=== PATIENT | female | born 1995 | race American Indian/Alaskan Native ===

== ENCOUNTER 2017-12-20 20:56 | Emergency (ER) | payer MEDICAID | END 2017-12-20 22:09 | disposition left against medical advice (07) | LOC: DL.ED 20:56 | DX: Z53.21 Procedure and treatment not carried out due to patient leaving prior to being seen by health care provider (principal) ==

== ENCOUNTER 2018-03-27 06:03 | Inpatient (IN) | payer MEDICAID ==
[~2018-03-27 06:03] MED LIST: Acetaminophen 325 MG Tab PO PRN; Carboprost Tromethamine 250 MCG/1 ML Amp IM ONE; Citric Acid/Sodium Citrate Solution 30 ML Cup PO ONE; Methylergonovine 0.2 MG/1 ML Amp IM PRN; Misoprostol 400 MCG (4 X 100 MCG TAB) RECTAL PRN; Naloxone 2 MG/2 ML Syringe IVPUSH PRN; Ondansetron 4 MG/2 ML SDV IV PRN; Oxytocin/Normal Saline 30 UNIT/500 ML BAG IV SCH; Tranexamic Acid 1,000 MG in Sodium Chloride 0.9% 100 ML IV PRN; ceFAZolin 2 GM in Premix Bag 1 BAG IV ONE; diphenhydrAMINE 50 MG/ML SDV IVPUSH PRN; ePHEDrine 50 MG/ML SDV IVPUSH PRN
[2018-03-27] MEDS: Lactated Ringers 1,000 ML IV SCH ×5 (06:25→17:43)
[2018-03-27] MEDS: Prenatal Multivitamin with Calcium/Folic Acid/Iron Tab PO SCH ×2 (07:06→08:21)
[2018-03-27] MEDS: Simethicone 80 MG Tab.Chew PO SCH ×5 (07:06→21:00)
[2018-03-27] MEDS: Ferrous Sulfate 325 MG Tab PO SCH ×2 (07:07→08:20)
--- NOTE | 2018-03-27 11:01 | OBOUT ---
DATE: 03/27/2018 DATE AND TIME OF NST: Date: 03/27/2018 Time: 6:30 to 6:50. REASON FOR NST: 1. Intrauterine at 39 weeks, confirmed with 22-1/7-week ultrasound. 2. Previous x1, request for repeat low transverse . 3. Contraction upon admission. 4. GBS negative. 5. History of suspected anti-E in , none detected, no titers in 03/2018 followed [facility] with no concerns with titers. Okay to deliver in [place]. 6. Trichomoniasis in , treated and negative on 03/01/2018. 7. Positive Chlamydia in , treated on 03/08/2018, too early to retest. 8. History of preeclampsia with previous , on aspirin prophylaxis until last week. 9. Positive UDS for THC on 09/14/2017 at [facility]. 10.History of macrosomia. 11.G2, P1-0-0-1. 12.Gestational hypertension versus preeclampsia. NST INTERPRETATION: During this time period, heart tone baseline is approximately 115 to 120, and there are at least two 15 x 15 beats per minute accelerations, making this strip reactive. It is also noted to be reassuring. Tocometer reveals potential 6 contractions, which the patient feels, described as back pain. ASSESSMENT: 1. Nonstress test, reactive and reassuring. 2. Tocometer with contractions. PLAN: Please see H and P for further details, which was done through [facility]. Records were called for, reviewed, and supplemented by the patient's history for this as well as review of systems was fully reviewed and felt to be noncontributory otherwise, other than for her contractions. Her blood pressures were 142/88, recheck 155/81; heart rate between 75 and 78; temperature 97.4. PIH panel is pending currently, and we will proceed to the OR as soon as crew is ready and available. [facility] /[id number]
[2018-03-27] MEDS ORDERED: Famotidine 20 MG/2 ML SDV IVPUSH PRN (11:45)
--- NOTE | 2018-03-27 12:22 | PN ---
DATE: 03/27/2018 SUBJECTIVE: Patient feeling her contractions in the lower abdomen, radiating to the back, coming every 2-4 minutes. LABORATORY DATA: Reveal a white cell count 12.7, hemoglobin 8.6, and platelets 304. PIH panel done essentially within normal limits except for urine protein being 30, small bilirubin, trace leukocyte esterase with a protein creatinine ratio of 0.19 in the urine with UDS negative. Blood bank did reveal O positive blood type with a positive antibody with our lab unable to determine the antibody. ASSESSMENT/PLAN: Anemia of with a 23-year-old, 2, para 1-0-0- 1, previous section, requests repeat low-transverse section with contractions in laboring type pattern with gestational hypertension and history of anti E antibody per chart review with this being negative within the last month but positive antibody on the screen today. I did discuss this with labs sales and service technician who has also consulted in blood services in regard to potential needing blood for this patient. At current time of dictation, blood bank has called us with the blood that would match her in terms of being O positive with suspected negative E antigen and at current time of dictation, we are cross matching those 4 units to see if there is any cross reactivity to make sure blood is available for this patient. I did discuss this with the patient in detail. I did also discuss with her that our lab is unable to do a specific antibody screen and her antibody test is positive here and if she does require blood, she may be at risk of a blood transfusion reaction. However, we will cross match these 4 units, hold off on the surgery as long as we can and most likely proceed if they cross match without reactivity. The patient understands and agrees with above treatment plan. Mi has been started, abdominal scrub has been done, and we will await labs confirmation of results in regard to blood that is available for the patient. Current time of dictation will be approximately 20 minutes from now prior to knowing this. We will continue to follow clinically and closely at this point in time. [facility] /[id number]
[2018-03-27] MEDS ORDERED: Oxytocin/Normal Saline 30 UNIT/500 ML BAG IV ONE (13:51)
--- NOTE | 2018-03-27 13:53 | OR ---
DATE: 03/27/2018 PREOPERATIVE DIAGNOSES: 1. Intrauterine at 39 weeks, confirmed with 22 and 1/7-week ultrasound. 2. Contractions upon admission. 3. Gestational hypertension. 4. Previous section x1, request repeat low transverse section. 5. Group B Streptococcus negative. 6. Suspected anti-E antibody earlier in . Negative earlier this month with a positive antibody test today with 4 units of cross-matched blood ready and available without cross reactivity prior to surgery. 7. Anemia of with a hemoglobin of 8.6. 8. Trichomoniasis in , treated and negative on 03/01/2018. 9. Positive chlamydia, treated on 03/08/2018, too early to retest. 10.History of preeclampsia with previous , on aspirin prophylaxis until last week. 11.Positive UDS for THC on 09/14/2017 at [facility]. Negative upon admission. 12.History of macrosomia. 13.G2, P1-0-0-1. POSTOPERATIVE DIAGNOSES: 1. Intrauterine at 39 weeks, confirmed with 22 and 1/7-week ultrasound-delivered 2. Contractions upon admission. 3. Gestational hypertension. 4. Previous section x1, requests repeat low transverse section. 5. Group B Streptococcus negative. 6. Suspected anti-E antibody earlier in . Negative earlier this month with a positive antibody test today with 4 units of cross-matched blood ready and available without cross reactivity prior to surgery. 7. Anemia of with a hemoglobin of 8.6. 8. Trichomoniasis in , treated and negative on 03/01/2018. 9. Positive chlamydia, treated on 03/08/2018 too early to retest. 10.History of preeclampsia with previous , on aspirin prophylaxis until last week. 11.Positive UDS for THC on 09/14/2017 at [facility]. Negative upon admission. 12.History of macrosomia. 13.G2, P1-0-0-1. 14.Nuchal cord x1, reduced bluntly with delivery. PROCEDURE PERFORMED: Nonstress test followed by repeat low transverse section. ASSISTANTS: 1. True Nichols MD. 2. Shubham Cohn MS-III. ANESTHESIA: Spinal. ESTIMATED BLOOD LOSS: 500 mL. INTRAVENOUS FLUIDS: 400 mL lactated Ringer's and 250 mL of Pitocin. URINE OUTPUT: 175 mL and clear yellow. START: 0915 hours. UTERINE INCISION: 0920 hours. DELIVERY: 0921 hours. STOP: 0945 hours. FINDINGS: Male, scores of 9 and 9, weight pending. DESCRIPTION OF PROCEDURE IN DETAIL: After proper consent was obtained, the patient was brought to the operating room where spinal anesthetic was administered. A Mi was placed in preop under sterile conditions. The abdomen was prepped and draped in normal sterile fashion with patient placed in supine position with left lateral tilt. A skin incision was then made in the lower abdomen in transverse Pfannenstiel- type fashion over a previous scar, and this was carried down the fascia and scored in the midline. The subcutaneous tissue was raked laterally with Chen retractors. The fascial incision was extended in transverse fashion using curved Hoffman's. Phillip clamps x2 were used to grasp the superior aspect of the rectus fascia, and the rectus muscles were dissected from the fascia using sharp and blunt technique. In a similar fashion, Phillip clamps x2 were used to grasp the inferior portion of the incision, and rectus and pyramidalis muscles were dissected from the fascia using sharp and blunt technique. The rectus muscles were in the midline with blunt technique. The abdominal cavity was entered in blunt technique. The incision was extended superiorly and inferiorly with blunt technique. River O large retractor was then introduced and used. The vesicouterine peritoneum was identified and incised in transverse fashion with Metzenbaum scissors, and bladder flap was made digitally. A curvilinear incision was made on the lower uterine segment at 0920 hours. The uterus was entered sharply. The uterine incision was then extended in transverse fashion using blunt technique. Artificial rupture of membranes was then performed. vertex was then delivered through the incision followed by rest of the with minimal difficulty with nuchal cord x1 reduced bluntly with delivery. Mouth and nares were suctioned on the patient's lap. Cord was doubly clamped and cut, and the infant was brought over to team. Then, approximately 10 mL of cord blood was obtained for labs. The placenta was then delivered with gentle cord traction and fundal massage. Uterine cavity was cleared of all blood clots with a lap sponge. Montiel clamps were used to grasp the uterine incision. This was closed in a running locked fashion and tied at the lateral margin with 1-0 Vicryl. Second imbricating layer was then applied with 1-0 Vicryl and tied at lateral margins. Right at midline, there was some bleeding. A ayvnex-ge-nnwci stitch was applied and hemostasis was reassured. First inspection of the uterine incision revealed hemostasis. The Rvier O retractor was then removed; and paracolic gutters were then cleared of all blood clots and debris with lap sponge. Anterior cul-de-sac was then irrigated copiously, and all blood clots and debris were removed. Second and final inspection of the uterine incision and anterior cul-de-sac revealed hemostasis. The rectus muscles were then reapproximated in midline with fywrtk-mk-nsene stitch using 1-0 Vicryl. Subfascial tissue was found to be hemostatic. Fascia was closed in a running fashion and tied at lateral margins with 0 looped PDS. Subcutaneous tissue was irrigated copiously and hemostasis reassured. Skin was reapproximated with medium danica. Sterile Aquacel dressing was applied. Uterine fundus was firm and massaged at the conclusion of the case -2 below umbilicus. No immediate complications were noted. Sponge, lap, and needle counts were correct. The patient received 2 g of Ancef preoperatively, Pitocin per protocol, and will receive Toradol at the conclusion of the case for pain control. Mother and infant are currently stable at the time of dictation. [facility] /[id number] JOEY
--- NOTE | 2018-03-27 13:55 | PN ---
DATE: 03/27/2018 Lab called us, did notify us that they do have 4 units of packed red blood cells that have been cross-matched without reactivity. These are the same blood units that [facility] called and checked and evaluated and suspected no E antigen involved. Therefore, we will proceed to the operating room as previously discussed. This has been discussed with the patient as well. At current time of dictation, the patient is being wheeled to the operating room. [facility] /[id number]
[2018-03-27] MEDS: Ketorolac 30 MG/ML SDV IVPUSH SCH ×2 (15:28→21:00)
[2018-03-27] MEDS: Docusate Sodium 100 MG Cap PO PRN (21:00)
[2018-03-28] MEDS: Ketorolac 30 MG/ML SDV IVPUSH SCH (03:06)
[2018-03-28] MEDS: Prenatal Multivitamin with Calcium/Folic Acid/Iron Tab PO SCH (09:11)
[2018-03-28] MEDS: Simethicone 80 MG Tab.Chew PO SCH ×4 (09:11→21:08)
[2018-03-28] MEDS: Ferrous Sulfate 325 MG Tab PO SCH (09:11)
[2018-03-28] MEDS: Acetaminophen/oxyCODONE 325-5 MG Tab PO PRN ×3 (09:17→23:13)
[2018-03-28] MEDS: Docusate Sodium 100 MG Cap PO PRN ×2 (09:18→21:08)
--- NOTE | 2018-03-28 12:40 | PN ---
DATE: 03/27/2018 SUBJECTIVE: Postoperative day #1, status post repeat low transverse section. No concerns per nursing staff or per the patient. She feels that her pain is well controlled on current medications. She denies fevers or chills, headaches or blurry vision, shortness of breath or chest pain, nausea or vomiting, sharp abdominal pains or edema, erythema, or tenderness in any extremity. She does note some mild dizziness when walking. She is passing gas, but has not yet had a bowel movement and denies any difficulty with urination. She is ambulating without difficulty and tolerating a general diet. OBJECTIVE: Vital Signs: Temperature 97.2, heart rate 71, blood pressure 117/61, respiratory rate 20, and oxygen saturation 97% on room air. General: Pleasant, well-appearing female, in no acute distress. Heart: Regular rate and rhythm, S1 and S2. Lungs: Clear to auscultation bilaterally with normal respiratory effort. Abdomen: Soft, nontender, and nondistended. The uterus is firm and 4 fingerbreadths above the umbilicus. The patient does have a large pannus. Aquacel dressing is clean, dry, and intact without shadowing. Neurologic: No obvious neurologic deficits. Extremities: No edema, erythema, or tenderness in any extremity. Skin: Warm, dry, and well perfused. LABORATORY DATA: White blood cells 11.8, hemoglobin 7.0, and platelets 265. ASSESSMENT: 1. Intrauterine at 39 weeks, confirmed with a 22 and 1/7 week ultrasound, delivered via repeat low transverse section. 2. Contractions upon admission. 3. Gestational hypertension. 4. Previous section x1, request repeat low transverse section. 5. Group B streptococcus negative. 6. Suspected IgE antibody, early urine negative earlier this month with a positive antibody test upon admission with 4 units of cross-matched blood ready and available without cross-reactivity prior to surgery. 7. Anemia of . Current hemoglobin 7.0. 8. Trichomoniasis in , treated and negative on 03/01/2018. 9. Positive chlamydia, treated on 03/08/2018, too early to retest. 10.History of preeclampsia with previous on aspirin prophylaxis until last week. 11.Positive urine drug screen for tetrahydrocannabinol on 09/14/2017, at [facility], negative upon admission. 12.History of macrosomia. 13. 2, para 1-0-0-1. 14.Nuchal cord x1, reduced bluntly with delivery. PLAN: Continue routine and postoperative cares. Please see orders for further detail. The plan has been discussed with the patient. She expressed understanding. She is in agreement. All of her questions were answered. We will continue to follow closely. The history, physical, assessment, and plan are per Dr. March; and this note is being scribed for Dr. March. seen and agreed with med student-DIMITRY [facility] /[id number] JOEY
[2018-03-28] MEDS: Ibuprofen 800 MG Tab PO PRN (15:55)
[2018-03-29] MEDS: Simethicone 80 MG Tab.Chew PO SCH ×5 (07:39→21:09)
[2018-03-29] MEDS: Ferrous Sulfate 325 MG Tab PO SCH (07:39)
[2018-03-29] MEDS: Prenatal Multivitamin with Calcium/Folic Acid/Iron Tab PO SCH ×2 (07:39→10:18)
[2018-03-29] MEDS: Acetaminophen/oxyCODONE 325-5 MG Tab PO PRN ×4 (07:39→23:17)
[2018-03-29] MEDS: Docusate Sodium 100 MG Cap PO PRN ×2 (07:40→21:09)
[2018-03-29] MEDS: Ibuprofen 800 MG Tab PO PRN ×2 (07:40→18:38)
--- NOTE | 2018-03-29 10:11 | PN ---
DATE: 03/29/2018 SUBJECTIVE: Postoperative day #2 status post repeat low transverse section. Nursing staff notes low hemoglobin level this morning at 6.8 and increased blood pressures. No other concerns per nursing staff and no concerns per the patient. She feels that her pain is well controlled on current medications. She denies fevers or chills, lightheadedness or dizziness, headaches or blurry vision, shortness of breath or chest pain, nausea or vomiting, sharp abdominal pains or erythema or tenderness in any extremity. She does note some edema in her lower extremities bilaterally. She is passing gas, but has not yet had a bowel movement. She denies any difficulty with urination and notes that her lochia continues to improve. She is ambulating without difficulty and tolerating a general diet. OBJECTIVE: Vital Signs: Temperature 97.9 Fahrenheit, heart rate 70, blood pressure 141/86, respiratory rate 16, and oxygen saturation 99% on room air. General: Pleasant, well-appearing female in no acute distress. Heart: Regular rate and rhythm. S1 and S2. Lungs: Clear to auscultation bilaterally with normal respiratory effort. Abdomen: Soft, nontender, and nondistended. The uterus is firm and 3 fingerbreadths above the umbilicus. The patient does have a large pannus. Aquacel dressing is clean, dry, and intact. Neurologic: No obvious neurologic deficits. Extremities: No erythema or tenderness in any extremity. Trace edema noted in the lower extremities bilaterally. Skin: Warm, dry, and well perfused. LABORATORY DATA: White blood cells 10.3, hemoglobin 6.8, and platelet count 233. ASSESSMENT: 1. Intrauterine at 39 weeks' gestation confirmed with a 22 and 1/7 weeks' ultrasound, delivered via repeat low transverse section. 2. Contractions upon admission. 3. Gestational hypertension. 4. Previous section x1, request repeat low transverse section. 5. Group B streptococcus negative. 6. Suspected IgE antibody earlier in , negative earlier this month with a positive antibody test upon admission with 4 units of cross-matched blood ready and available without cross-reactivity prior to surgery. 7. Anemia of . Current hemoglobin 6.8, asymptomatic. 8. Trichomoniasis in , treated and negative on 03/01/2018. 9. Positive chlamydia, treated on 03/08/2018, too early to retest. 10.History of preeclampsia with previous on aspirin prophylaxis until last week. 11.Positive urine drug screen for tetrahydrocannabinol on 09/14/2017 at [facility], negative upon admission. 12.History of macrosomia. 13. 2, para 2-0-0-2. 14.Nuchal cord x1, reduced bluntly with delivery. PLAN: With continued dropping of hemoglobin level, we will transfuse 2 units of cross-match blood, and we will repeat CBC tomorrow and consider further intervention at that time if necessary. The patient has been informed of the risks and benefits associated with transfusion and has agreed to proceed. We will follow closely. Continue other routine and postoperative cares. Please see orders for further details. The plan has been discussed with the patient. She expressed understanding and is in agreement, and all of her questions were answered. We will follow closely and anticipate discharge tomorrow, 03/30/2018. The history, physical, assessment, and plan are per Dr. March; and this note is being scribed for Dr. March. seen and agreed with med student-DIMITRY MODL /[id number] JOEY
[2018-03-30] MEDS: Ibuprofen 800 MG Tab PO PRN (04:11)
[2018-03-30] MEDS: Acetaminophen/oxyCODONE 325-5 MG Tab PO PRN (06:11)
[2018-03-30] MEDS: Prenatal Multivitamin with Calcium/Folic Acid/Iron Tab PO SCH (09:11)
[2018-03-30] MEDS: Ferrous Sulfate 325 MG Tab PO SCH (09:11)
[2018-03-30] MEDS: Simethicone 80 MG Tab.Chew PO SCH (09:12)
[2018-03-30 09:43] VITALS: BP 150/80
[2018-03-30] MEDS ORDERED: Ketorolac 30 MG/ML SDV IVPUSH ONE (10:37)
[2018-03-30] MEDS ORDERED: Morphine PF 1 MG/ML Amp ONE (10:37)
[2018-03-30] MEDS ORDERED: Bupivacaine 0.75%/D5W 2 ML Amp INJECT ONE (10:37)
[2018-03-30] MEDS ORDERED: Dexamethasone 4 MG/ML SDV IV ONE (10:37)
[2018-03-30] MEDS ORDERED: Ondansetron 4 MG/2 ML SDV IV ONE (10:37)
--- NOTE | 2018-03-30 10:48 | DISCH ---
ADMISSION DIAGNOSES: 1. Intrauterine at 39 weeks, confirmed with 22 and 1/7-week ultrasound. 2. Previous section x1, request for repeat low transverse section. 3. Contractions upon admission. 4. Group B streptococcus negative. 5. Anti-E antibody in . None detected within the last month but positive upon admission. 6. Trichomoniasis in , treated. Negative on 03/01/2018. 7. Positive chlamydia on 03/08/2018, treated too early to retest. 8. History of preeclampsia with previous , on aspirin prophylaxis until last week. 9. Positive UDS for THC on 09/14/2017, negative upon admission. 10.History of macrosomia. 11.Gestational hypertension. 12.G2, P1-0-0-1. DISCHARGE DIAGNOSES: 1. Intrauterine at 39 weeks, confirmed with 22 and 1/7-week ultrasound, delivered. 2. Nuchal cord x1, reduced bluntly with delivery. 3. Anemia of acute blood loss with hemoglobin dropping down to 6.8 from 8.6 preoperatively, requiring 2 units of packed red blood cell transfusion. 4. Previous section x1, request for repeat low transverse section. 5. Contractions upon admission. 6. Group B streptococcus negative. 7. Anti-E antibody in . None detected within the last month but positive upon admission. 8. Trichomoniasis in , treated. Negative on 03/01/2018. 9. Positive chlamydia on 03/08/2018, treated too early to retest. 10.History of preeclampsia with previous , on aspirin prophylaxis until last week. 11.Positive UDS for THC on 09/14/2017, negative upon admission. 12.History of macrosomia. 13.Gestational hypertension. 14.G2, P1-0-0-1. PROCEDURES PERFORMED: Nonstress test followed by repeat low transverse section on 03/27/2018. HISTORY OF PRESENT ILLNESS: Please see H and P. SUMMARY OF HOSPITAL COURSE: The patient was admitted on the above date with the above diagnoses, was having contractions. Blood was called for and was able to be cross matched prior to the surgery. She was also diagnosed with gestational hypertension without evidence of preeclampsia based on labs. She subsequently underwent a repeat low transverse on the date of admission yielding a male, scores of 9 and 9, weighing 3800 g with a nuchal cord x1 reduced bluntly with delivery with an EBL of 500 mL. Postop day #1 and #2, please see progress notes. Postop day #2; she did have anemia of acute blood loss, hemoglobin dropping down to 6.8, and subsequently was transfused 2 units of packed red blood cells without incident. Postoperative day #3, date of discharge; the patient was tolerating p.o., ambulating, urinating, passing flatus, and requesting discharge. PHYSICAL EXAMINATION: Vital Signs: Last set of vitals updated and listed in the chart. Temperature 97.4; heart rate 71; blood pressure 141/83, recheck 145/80 and 140/77; and respiratory rate is 20. Appearance: The patient is lying in the bed. Lungs: Clear to auscultation bilaterally. Heart: S1 and S2. Regular rate and rhythm. Pelvic: Firm uterus felt. Aquacel dressing does reveal some shadowing, nothing increasing in size. LABORATORY DATA: Discharge labs reveal white cell count 9.7, hemoglobin 8.9, and platelets 246. Exam done in conjunction with medication student seen and agreed. CONDITION ON DISCHARGE COMPARED TO CONDITION ON ADMISSION: Improved. DISCHARGE INSTRUCTIONS: 1. Diet as tolerated. 2. Activity: No lifting more than 20 pounds. No sit-ups or straining. Pelvic rest for the next 6 weeks with immediate return fully discussed. 3. Reason to return or go to the emergency room was discussed with the patient in detail to include but not limited to temperature greater than 100.4, foul-smelling discharge, red or hot breasts, increased vaginal bleeding, increasing headaches, visual changes, or upper abdominal pain. DISCHARGE MEDICATIONS: 1. Zcyy-fug-zwaznyz ibuprofen for pain. 2. Iron sulfate 325 mg b.i.d. x6 weeks. 3. Colace 100 mg b.i.d. p.r.n. 4. A breast pump script will also be given. FOLLOWUP: Follow up on 04/03/2018 with one of my partners in my absence for staple removal as well as with her baby at that time. I did discuss with the patient in the interim the reasons to return or go to the emergency room in regard to her infant. At the current time of dictation, awaiting 's bilirubin level and may need to stay to continue feeding baby, if baby needs to be kept for a longer period of time. The patient understands and agrees with the above treatment plan. [facility] /[id number]
== END 2018-03-30 10:45 | disposition home or self-care (01) | DRG 765 ==
LOC: DL.OB 06:03 → OBSVTOIN 09:21 → DL.OB 11:00 → DL.MS 03-28 05:37
PROVIDERS: ADMIT Family Medicine; ATTEND Family Medicine
PROC: 10D00Z1 Extraction of Products of Conception, Low, Open Approach (ICD-10-PCS; principal; 2018-03-27)
PROC: 6A550ZT Pheresis of Cord Blood Stem Cells, Single (ICD-10-PCS; 2018-03-27)
PROC: 30233N1 Transfusion of Nonautologous Red Blood Cells into Peripheral Vein, Percutaneous Approach (ICD-10-PCS; 2018-03-29)
DX: O34.211 Maternal care for low transverse scar from previous cesarean delivery (principal); O99.12 Other diseases of the blood and blood-forming organs and certain disorders involving the immune mechanism complicating childbirth; D68.61 Antiphospholipid syndrome; O13.3 Gestational [pregnancy-induced] hypertension without significant proteinuria, third trimester; D62 Acute posthemorrhagic anemia; N85.8 Other specified noninflammatory disorders of uterus; Z3A.39 39 weeks gestation of pregnancy; Z37.0 Single live birth; O13.4 Gestational [pregnancy-induced] hypertension without significant proteinuria, complicating childbirth; O69.81X0 Labor and delivery complicated by cord around neck, without compression, not applicable or unspecified; O90.81 Anemia of the puerperium
CPT/HCPCS: 01961; 36415; 36430; 51702; 80305; 81003; 82565; 82570; 83615; 84075; 84156; 84450; 84520; 84550; 85027; 86850; 86900; 86901; 86902; 86920; 86922; A9270-GY; J0690; J1100; J1200; J1885; J2274; J2405; J2590; J7120; P9016

== ENCOUNTER 2020-01-12 05:02 | Emergency (ER) | payer MEDICAID, OTHER ==
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
[2020-01-12 05:10] VITALS: BP 141/87; PULSE 106
[2020-01-12 05:59] LABS: ANION GAP 12.8; CHLORIDE,CL 103 mmol/L (101-111); SODIUM,NA 138 mmol/L (135-145)
== END 2020-01-12 07:35 | disposition home or self-care (01) ==
LOC: DL.ED 05:02
DX: S02.2XXA Fracture of nasal bones, initial encounter for closed fracture (principal); S10.93XA Contusion of unspecified part of neck, initial encounter; Z88.0 Allergy status to penicillin; Z88.2 Allergy status to sulfonamides; Z88.8 Allergy status to other drugs, medicaments and biological substances; Y04.0XXA Assault by unarmed brawl or fight, initial encounter
CPT/HCPCS: 36415; 70450; 70486; 72125; 80053; 80305-QW; 80307; 81001; 81025; 85025; 87086; 99284; 99284-25

== ENCOUNTER 2021-09-15 14:51 | Emergency (ER) | payer BC, OTHER ==
--- NOTE | 2021-09-15 15:04 | EDM.PDOCBH ---
ED HPI GENERAL MEDICAL PROBLEM - General Chief Complaint: Behavioral/Psych Stated Complaint: SUCIDAL THOUGHTS Time Seen by Provider: 09/15/21 15:04 Source of Information: Reports: Patient, Old Records, Provider (Dean Fraga), RN, RN Notes Reviewed History Limitations: Reports: No Limitations - History of Present Illness INITIAL COMMENTS - FREE TEXT/NARRATIVE: Pt presents to ER from work with report of suicidal thoughts and attempt yesterday by overdose. Today pt was planning to hang herself. Pt states she began to have suicidal thoughts 09/13/21. Pt took Prazosin 1mg about 30 tablets and Sertraline unknown strength about 20-30 tablets on 09/14/21 at 2200HRS, then vomited up most of the medication. Today while working at [facility] pt confided to one of the clinicians that she was going to go home and hang herself. The pt was willing to have a [employer] van bring her to the ER for evaluation. Onset: Gradual Duration: Constant, Getting Worse Location: Reports: Generalized Severity: Severe Improves with: Reports: None Worsens with: Reports: None Associated Symptoms: Reports: No Other Symptoms - Related Data Allergies Allergy/AdvReac Type Severity Reaction Status Date / Time amoxicillin [Amoxicillin] Allergy Rash Verified 01/12/20 05:10 pseudoephedrine Allergy Cannot Verified 01/12/20 05:10 [From Sudafed] Remember Sulfa (Sulfonamide Allergy Cannot Verified 01/12/20 05:10 Antibiotics) Remember Home Meds: Home Meds . [No Known Home Meds] 01/12/20 [History] Past Medical History - Past Health History Medical/Surgical History: Denies Medical/Surgical History HEENT History: Reports: Impaired Vision, Other (See Below) Other HEENT History: wears glasses Gastrointestinal History: Reports: Cholelithiasis [employer] History: Reports: Hematologic History: Reports: Anemia Immunologic History: Reports: None Oncologic (Cancer) History: Reports: None - Infectious Disease History Infectious Disease History: Reports: Chicken Pox - Past Surgical History Head Surgeries/Procedures: Reports: None GI Surgical History: Reports: Cholecystectomy Musculoskeletal Surgical History: Reports: Arthroscopic Knee, Other (See Below) Social & Family History - Family History Family Medical History: No Pertinent Family History Cardiac: Reports: None Respiratory: Reports: None GI: Reports: None : Reports: None OBGYN: Reports: None Musculoskeletal: Reports: None Neurological: Reports: None Psychiatric: Reports: None Endocrine/Metabolic: Reports: None Hematologic: Reports: None Immunologic: Reports: None Dermatologic: Reports: None Oncologic: Reports: None - Caffeine Use Caffeine Use: Reports: Coffee, Soda - Living Situation & Occupation Living situation: Reports: with Family Occupation: Employed ED ROS GENERAL - Review of Systems Review Of Systems: Comprehensive ROS is negative, except as noted in HPI. ED EXAM, BEHAVIORAL HEALTH - Physical Exam Exam: See Below Exam Limited By: No Limitations General Appearance: Alert, WD/WN, No Apparent Distress, Obese Eye Exam: Bilateral Eye: EOMI, Normal Inspection, PERRL Ears: Normal External Exam, Normal Canal, Hearing Grossly Normal, Normal TMs Nose: Normal Inspection, Normal Mucosa, No Blood Throat/Mouth: Normal Inspection, Normal Lips, Normal Teeth, Normal Gums, Normal Oropharynx, Normal Voice, No Airway Compromise Head: Atraumatic, Normocephalic Neck: Normal Inspection, Supple, Non-Tender, Full Range of Motion Respiratory/Chest: No Respiratory Distress, Lungs Clear, Normal Breath Sounds, No Accessory Muscle Use, Chest Non-Tender Cardiovascular: Normal Peripheral Pulses, Regular Rate, Rhythm, No Edema, No Gallop, No JVD, No Murmur, No Rub GI/Abdominal: Normal Bowel Sounds, Soft, Non-Tender, No Organomegaly, No Distention, No Abnormal Bruit, No Mass (Female) Exam: Deferred Rectal (Female) Exam: Deferred Back Exam: Normal Inspection, Full Range of Motion, NT Extremities: Normal Inspection, Normal Range of Motion, Non-Tender, Normal Capillary Refill, No Pedal Edema Neurological: Alert, Normal Mood/Affect, CN II-XII Intact, Normal Cognition, Normal Gait, No Motor/Sensory Deficits, Oriented x 3 Psychiatric: Depressed Mood, Flat Affect, Tearful, Suicidal Plan, Suicidal Thoughts. No: Homicidal Thoughts, Phobic, Anabaptism Delusions, Tangential Thoughts, Auditory Hallucinations, Visual Hallucinations, Grandiose Thoughts, Pressured Speech, Paranoid Thoughts, Threatening Behavior Skin Exam: Warm, Dry, Intact, Normal color, No rash #1 Interpretation EKG Date: 09/15/21 Time: 16:42 Rhythm: Other (sinus rhythm) Rate (Beats/Min): 87 [place]: Normal P-Wave: Present QRS: Normal ST-T: Normal QT: Normal COURSE, BEHAVIORAL HEALTH COMP - Course Orders, Labs, Meds: Active Orders 24 hr Category Date Time Status EKG 12 Lead [EKG Documentation Completion] [RC] STAT Care 09/15/21 15:08 Active CORONAVIRUS COVID-19 CHARLA [MOLEC] Stat Lab 09/15/21 16:18 Received CULTURE URINE [RM] Stat Lab 09/15/21 15:30 Received STD PANEL 3 [REF] Stat Lab 09/15/21 16:38 Ordered Suicide Precautions [OM.PC] Routine Oth 09/15/21 15:05 Ordered Laboratory Tests 09/15/21 09/15/21 09/15/21 Range/Units 15:17 15:17 15:17 WBC 9.6 (5.0-10.0) 10^3/uL RBC 4.87 (4.2-5.4) 10^6/uL Hgb 12.1 (12.0-16.0) g/dL Hct 40.2 (37.0-47.0) % MCV 82.5 (80-100) fL MCH 24.8 L (27.0-34.0) pg MCHC 30.1 L (33.0-35.0) g/dL Plt Count 465 H D (150-450) 10^3/uL Neut % (Auto) 77.3 H (42.2-75.2) % Lymph % (Auto) 15.5 L (20.5-50.1) % [place] % (Auto) 4.7 (2-8) % Eos % (Auto) 2.3 (1.0-3.0) % Baso % (Auto) 0.2 (0.0-1.0) % PT 9.5 (9.0-12.0) SEC INR 0.9 (0.9-1.2) APTT 26.3 (22.0-34.0) SEC Sodium 141 (136-145) mmol/L Potassium 4.0 (3.5-5.1) mmol/L Chloride 102 (98-107) mmol/L Carbon Dioxide 30 (21-32) mmol/L Anion Gap 13.0 (7-13) mEq/L BUN 8 (7-18) mg/dL Creatinine 0.90 (0.55-1.02) mg/dL Est Cr Clr Drug Dosing TNP Estimated GFR (MDRD) > 60 BUN/Creatinine Ratio 8.9 (No establ ref range) Glucose 105 H (70-99) mg/dL Calcium 8.9 (8.5-10.1) mg/dL Magnesium 2.3 (1.8-2.4) mg/dL Total Bilirubin 0.4 (0.2-1.0) mg/dL AST 23 (15-37) U/L ALT 47 (14-59) U/L Alkaline Phosphatase 118 H (46-116) U/L Troponin I High Sens 6 (<=51) pg/mL Total Protein 8.5 H (6.4-8.2) g/dL Albumin 3.6 (3.4-5.0) g/dL Globulin 4.9 Albumin/Globulin Ratio 0.7 TSH, Ultra Sensitive 1.23 (0.36-3.74) uIU/mL Urine Color (YELLOW) Urine Appearance (CLEAR) Urine pH (5.0-9.0) Ur Specific [place] (1.005-1.030) Urine Protein (NEGATIVE) Urine Glucose (UA) (NEGATIVE) Urine Ketones (NEGATIVE) Urine Occult Blood (NEGATIVE) Urine Nitrite (NEGATIVE) Urine Bilirubin (NEGATIVE) Urine Urobilinogen (0.2-1.0) mg/dL Ur Leukocyte Esterase (NEGATIVE) Urine RBC (0-5) /HPF Urine WBC (0-5/HPF) /HPF Ur Epithelial Cells (NOT SEEN) /HPF Urine Bacteria (0-FEW/HPF) /HPF Urine Trichomonas (NOT SEEN) /HPF Urine HCG, Qual Salicylates (2.8-20(Therapeutic)) mg/dL Urine Opiates Screen (NEGATIVE) Ur Oxycodone Screen (NEGATIVE) Urine Methadone Screen (NEGATIVE) Acetaminophen 0 L (10-30 (Therapeutic)) ug/mL Ur Barbiturates Screen (NEGATIVE) U Tricyclic Antidepress (NEGATIVE) Ur Phencyclidine Scrn (NEGATIVE) Ur Amphetamine Screen (NEGATIVE) U Methamphetamines Scrn (NEGATIVE) Urine MDMA Screen (NEGATIVE) U Benzodiazepines Scrn (NEGATIVE) Urine Cocaine Screen (NEGATIVE) U Marijuana (THC) Screen (NEGATIVE) Ethyl Alcohol < 3 (0) mg/dL 09/15/21 09/15/21 09/15/21 Range/Units 15:17 15:30 15:30 WBC (5.0-10.0) 10^3/uL RBC (4.2-5.4) 10^6/uL Hgb (12.0-16.0) g/dL Hct (37.0-47.0) % MCV (80-100) fL MCH (27.0-34.0) pg MCHC (33.0-35.0) g/dL Plt Count (150-450) 10^3/uL Neut % (Auto) (42.2-75.2) % Lymph % (Auto) (20.5-50.1) % [place] % (Auto) (2-8) % Eos % (Auto) (1.0-3.0) % Baso % (Auto) (0.0-1.0) % PT (9.0-12.0) SEC INR (0.9-1.2) APTT (22.0-34.0) SEC Sodium (136-145) mmol/L Potassium (3.5-5.1) mmol/L Chloride (98-107) mmol/L Carbon Dioxide (21-32) mmol/L Anion Gap (7-13) mEq/L BUN (7-18) mg/dL Creatinine (0.55-1.02) mg/dL Est Cr Clr Drug Dosing Estimated GFR (MDRD) BUN/Creatinine Ratio (No establ ref range) Glucose (70-99) mg/dL Calcium (8.5-10.1) mg/dL Magnesium (1.8-2.4) mg/dL Total Bilirubin (0.2-1.0) mg/dL AST (15-37) U/L ALT (14-59) U/L Alkaline Phosphatase (46-116) U/L Troponin I High Sens (<=51) pg/mL Total Protein (6.4-8.2) g/dL Albumin (3.4-5.0) g/dL Globulin Albumin/Globulin Ratio TSH, Ultra Sensitive (0.36-3.74) uIU/mL Urine Color (YELLOW) Urine Appearance (CLEAR) Urine pH (5.0-9.0) Ur Specific [place] (1.005-1.030) Urine Protein (NEGATIVE) Urine Glucose (UA) (NEGATIVE) Urine Ketones (NEGATIVE) Urine Occult Blood (NEGATIVE) Urine Nitrite (NEGATIVE) Urine Bilirubin (NEGATIVE) Urine Urobilinogen (0.2-1.0) mg/dL Ur Leukocyte Esterase (NEGATIVE) Urine RBC (0-5) /HPF Urine WBC (0-5/HPF) /HPF Ur Epithelial Cells (NOT SEEN) /HPF Urine Bacteria (0-FEW/HPF) /HPF Urine Trichomonas (NOT SEEN) /HPF Urine HCG, Qual Negative Salicylates < 2.8 L (2.8-20(Therapeutic)) mg/dL Urine Opiates Screen Negative (NEGATIVE) Ur Oxycodone Screen Negative (NEGATIVE) Urine Methadone Screen Negative (NEGATIVE) Acetaminophen (10-30 (Therapeutic)) ug/mL Ur Barbiturates Screen Negative (NEGATIVE) U Tricyclic Antidepress Negative (NEGATIVE) Ur Phencyclidine Scrn Negative (NEGATIVE) Ur Amphetamine Screen Negative (NEGATIVE) U Methamphetamines Scrn Negative (NEGATIVE) Urine MDMA Screen Negative (NEGATIVE) U Benzodiazepines Scrn Negative (NEGATIVE) Urine Cocaine Screen Negative (NEGATIVE) U Marijuana (THC) Screen Positive H (NEGATIVE) Ethyl Alcohol (0) mg/dL 09/15/21 Range/Units 15:30 WBC (5.0-10.0) 10^3/uL RBC (4.2-5.4) 10^6/uL Hgb (12.0-16.0) g/dL Hct (37.0-47.0) % MCV (80-100) fL MCH (27.0-34.0) pg MCHC (33.0-35.0) g/dL Plt Count (150-450) 10^3/uL Neut % (Auto) (42.2-75.2) % Lymph % (Auto) (20.5-50.1) % [place] % (Auto) (2-8) % Eos % (Auto) (1.0-3.0) % Baso % (Auto) (0.0-1.0) % PT (9.0-12.0) SEC INR (0.9-1.2) APTT (22.0-34.0) SEC Sodium (136-145) mmol/L Potassium (3.5-5.1) mmol/L Chloride (98-107) mmol/L Carbon Dioxide (21-32) mmol/L Anion Gap (7-13) mEq/L BUN (7-18) mg/dL Creatinine (0.55-1.02) mg/dL Est Cr Clr Drug Dosing Estimated GFR (MDRD) BUN/Creatinine Ratio (No establ ref range) Glucose (70-99) mg/dL Calcium (8.5-10.1) mg/dL Magnesium (1.8-2.4) mg/dL Total Bilirubin (0.2-1.0) mg/dL AST (15-37) U/L ALT (14-59) U/L Alkaline Phosphatase (46-116) U/L Troponin I High Sens (<=51) pg/mL Total Protein (6.4-8.2) g/dL Albumin (3.4-5.0) g/dL Globulin Albumin/Globulin Ratio TSH, Ultra Sensitive (0.36-3.74) uIU/mL Urine Color Yellow (YELLOW) Urine Appearance Slightly cloudy (CLEAR) Urine pH 7.0 (5.0-9.0) Ur Specific [place] 1.025 (1.005-1.030) Urine Protein Trace H (NEGATIVE) Urine Glucose (UA) Negative (NEGATIVE) Urine Ketones Negative (NEGATIVE) Urine Occult Blood Negative (NEGATIVE) Urine Nitrite Negative (NEGATIVE) Urine Bilirubin Negative (NEGATIVE) Urine Urobilinogen 1.0 (0.2-1.0) mg/dL Ur Leukocyte Esterase Small H (NEGATIVE) Urine RBC 0-5 (0-5) /HPF Urine WBC 5-10 H (0-5/HPF) /HPF Ur Epithelial Cells Many H (NOT SEEN) /HPF Urine Bacteria Moderate H (0-FEW/HPF) /HPF Urine Trichomonas Present H (NOT SEEN) /HPF Urine HCG, Qual Salicylates (2.8-20(Therapeutic)) mg/dL Urine Opiates Screen (NEGATIVE) Ur Oxycodone Screen (NEGATIVE) Urine Methadone Screen (NEGATIVE) Acetaminophen (10-30 (Therapeutic)) ug/mL Ur Barbiturates Screen (NEGATIVE) U Tricyclic Antidepress (NEGATIVE) Ur Phencyclidine Scrn (NEGATIVE) Ur Amphetamine Screen (NEGATIVE) U Methamphetamines Scrn (NEGATIVE) Urine MDMA Screen (NEGATIVE) U Benzodiazepines Scrn (NEGATIVE) Urine Cocaine Screen (NEGATIVE) U Marijuana (THC) Screen (NEGATIVE) Ethyl Alcohol (0) mg/dL Medications Discontinued Medications Generic Name Dose Route Start Last Admin Trade Name Freq PRN Reason Stop Dose Admin Metronidazole 2,000 mg 09/15/21 16:24 Metronidazole 250 Mg Tab PO 09/15/21 16:25 ONETIME ONE Ondansetron HCl 4 mg 09/15/21 16:23 Ondansetron 4 Mg Tab.Dis PO 09/15/21 16:24 ONETIME ONE Medical Clearance: 09/15/21 17:17 Pt is medically clear for crisis evaluation. Discharge vs Psych Eval/Treatment:: 09/15/21 17:17 Madison Mckenzie from [facility] has evaluated the pt and cannot find an inpatient bed available to admit the pt to. Madison has made a plan which the pt agrees with to be admitted to the CRU voluntarily. Departure - Departure Time of Disposition: 17:10 (discharge to CRU voluntarily) Disposition: DC/Tfer to Psych Hosp/Unit 65 Condition: Fair Clinical Impression: Suicidal thoughts - Discharge Information *PRESCRIPTION DRUG MONITORING PROGRAM REVIEWED*: No *COPY OF PRESCRIPTION DRUG MONITORING REPORT IN PATIENT RICHY: No Instructions: Suicidal Feelings: How to Help Yourself Forms: ED Department Discharge Additional Instructions: Rx: Lorazepam 1mg One tablet at bedtime. Go to CRU as planned. - My Orders Last 24 Hours: My Active Orders 09/15/21 15:05 Suicide Precautions [OM.PC] Routine 09/15/21 15:08 EKG 12 Lead [EKG Documentation Completion] [RC] STAT 09/15/21 15:30 CULTURE URINE [RM] Stat 09/15/21 16:18 CORONAVIRUS COVID-19 CHARLA [MOLEC] Stat 09/15/21 16:38 STD PANEL 3 [REF] Stat - Assessment/Plan Last 24 Hours: My Active Orders 09/15/21 15:05 Suicide Precautions [OM.PC] Routine 09/15/21 15:08 EKG 12 Lead [EKG Documentation Completion] [RC] STAT 09/15/21 15:30 CULTURE URINE [RM] Stat 09/15/21 16:18 CORONAVIRUS COVID-19 CHARLA [MOLEC] Stat 09/15/21 16:38 STD PANEL 3 [REF] Stat
[2021-09-15 15:53] LABS: PTT,PARTIAL THROMBOPLSTIN TIME 26.3 SEC (22.0-34.0)
[2021-09-15 15:53] LABS: AMPHETAMINES,URINE NEGATIVE (NEGATIVE); BARBITURATES,URINE NEGATIVE (NEGATIVE); BENZODIAZEPINE,URINE NEGATIVE (NEGATIVE); MDMA (ECSTASY), URINE NEGATIVE (NEGATIVE); METHADONE,URINE NEGATIVE (NEGATIVE); METHAMPHETAMINES,URINE NEGATIVE (NEGATIVE); OPIATES,URINE NEGATIVE (NEGATIVE); OXYCODONE,URINE NEGATIVE (NEGATIVE); PHENCYCLIDINE,URINE NEGATIVE (NEGATIVE); TCA,URINE NEGATIVE (NEGATIVE)
[2021-09-15 16:02] LABS: CHLORIDE,CL 102 mmol/L (98-107); SODIUM,NA 141 mmol/L (136-145)
[2021-09-15 16:03] LABS: ACETAMINOPHEN 0 ug/mL (10-30 (Therapeutic))
[2021-09-15] MEDS ORDERED: Ondansetron 4 MG Tab.DIS PO ONE (16:23)
[2021-09-15] MEDS ORDERED: metroNIDAZOLE 250 MG Tab PO ONE (16:24)
[2021-09-15] MEDS ORDERED: metroNIDAZOLE 250 MG Tab ONE (17:20)
[2021-09-15 18:04] VITALS: BP 142/60; PULSE 78
== END 2021-09-15 17:49 ==
LOC: DL.ED 14:51
DX: T44.6X2A Poisoning by alpha-adrenoreceptor antagonists, intentional self-harm, initial encounter (principal); T43.222A Poisoning by selective serotonin reuptake inhibitors, intentional self-harm, initial encounter; Z88.0 Allergy status to penicillin; Z88.2 Allergy status to sulfonamides; Z88.8 Allergy status to other drugs, medicaments and biological substances
CPT/HCPCS: 36415; 80053; 80143; 80179; 80305; 80307; 81001; 81025; 83735; 84443; 84484; 85025; 85610; 85730; 87086; 87491; 87563; 87591; 87635; 99285; A9270; U0002

== ENCOUNTER 2021-10-02 11:12 | Emergency (ER) | payer BC, OTHER ==
[2021-10-02 11:35] VITALS: BP 134/79
[2021-10-02] MEDS ORDERED: Albuterol 0.083% 2.5 MG/3 ML Neb Soln NEB ONE (12:11)
[2021-10-02] MEDS ORDERED: Albuterol 0.083% 2.5 MG/3 ML Neb Soln ONE (12:32)
[2021-10-02 12:39] VITALS: PULSE 97
--- NOTE | 2021-10-02 12:47 | EDM.PDOC ---
ED HPI GENERAL MEDICAL PROBLEM - General Chief Complaint: Respiratory Problem Stated Complaint: CHEST PAIN / SHORTNESS OF BREATH Time Seen by Provider: 10/02/21 11:50 Source of Information: Reports: Patient, RN, RN Notes Reviewed History Limitations: Reports: No Limitations - History of Present Illness INITIAL COMMENTS - FREE TEXT/NARRATIVE: Madina is a 26 y/o female who presents to the ED via personal vehicle with complaints of productive cough, sore throat, and shortness of breath. The patient reports her symptoms began three days ago and have progressively worsened. Additionally, she notes chills and chest tightness with cough. She reports coughing so significant she begins to vomit, but she denies nausea. The patient denies fever, vision changes, dizziness, chest pain, palpitations, dyspepsia, or abdominal pain. She has taken one dose of acetaminophen for transient headache, which provided alleviation of head pain but none of her other symptoms. The patient states she is vaccinated for COVID-19 and Influenza; she is tested for COVID every Monday with her last test result negative. She denies tobacco, alcohol, or recreational drug use. Chest Pain Score (Numeric/FACES): 4 - Related Data Allergies Allergy/AdvReac Type Severity Reaction Status Date / Time amoxicillin [Amoxicillin] Allergy Rash Verified 10/02/21 11:35 pseudoephedrine Allergy Cannot Verified 10/02/21 11:35 [From Sudafed] Remember Sulfa (Sulfonamide Allergy Cannot Verified 10/02/21 11:35 Antibiotics) Remember Home Meds: Home Meds FLUoxetine HCl [Prozac] 20 mg PO ASDIRECTED 10/02/21 [History] Past Medical History - Past Health History Medical/Surgical History: Denies Medical/Surgical History HEENT History: Reports: Impaired Vision, Other (See Below) Other HEENT History: wears glasses Gastrointestinal History: Reports: Cholelithiasis [employer] History: Reports: Hematologic History: Reports: Anemia Immunologic History: Reports: None Oncologic (Cancer) History: Reports: None - Infectious Disease History Infectious Disease History: Reports: Chicken Pox - Past Surgical History Head Surgeries/Procedures: Reports: None GI Surgical History: Reports: Cholecystectomy Female Surgical History: Reports: Section Musculoskeletal Surgical History: Reports: Arthroscopic Knee, Other (See Below) Other Musculoskeletal Surgeries/Procedures:: ACL and meniscus tear Social & Family History - Family History Family Medical History: No Pertinent Family History Cardiac: Reports: None Respiratory: Reports: None GI: Reports: None : Reports: None OBGYN: Reports: None Musculoskeletal: Reports: None Neurological: Reports: None Psychiatric: Reports: None Endocrine/Metabolic: Reports: None Hematologic: Reports: None Immunologic: Reports: None Dermatologic: Reports: None Oncologic: Reports: None - Tobacco Use Tobacco Use Status *Q: Current Every Day Tobacco User Years of Tobacco use: 2 Packs/Tins Daily: 1 - Caffeine Use Caffeine Use: Reports: Coffee - Recreational Drug Use Recreational Drug Use: Yes Recreational Drug Type: Reports: Marijuana/Hashish - Living Situation & Occupation Living situation: Reports: with Family Occupation: Employed ED ROS GENERAL - Review of Systems Review Of Systems: Comprehensive ROS is negative, except as noted in HPI. ED EXAM, GENERAL - Physical Exam Exam: See Below Exam Limited By: No Limitations General Appearance: Alert, No Apparent Distress Eye Exam: Bilateral Eye: EOMI, Normal Inspection, PERRL (3mm) Ears: Normal External Exam, Normal Canal, Hearing Grossly Normal Ear Exam: Bilateral Ear: Erythema Nose: Normal Inspection, Normal Mucosa, No Blood Throat/Mouth: Normal Inspection, Normal Oropharynx, Normal Voice, No Airway Com promise Head: Atraumatic, Normocephalic Neck: Normal Inspection, Supple, Non-Tender, Full Range of Motion. No: Lymphadenopathy (L), Lymphadenopathy (R) Respiratory/Chest: No Accessory Muscle Use, Chest Non-Tender, Rales (To left lower lobe), Wheezing (Faint to bilateral upper lobes). No: Rhonchi, Stridor Cardiovascular: Normal Peripheral Pulses, Regular Rate, Rhythm, No Gallop, No Murmur, No Rub Peripheral Pulses: 2+: Radial (L), Radial (R) GI/Abdominal: Normal Bowel Sounds, Soft, Non-Tender, No Distention, No Abnormal Bruit, No Mass, Pelvis Stable (Female) Exam: Deferred Rectal (Female) Exam: Deferred Back Exam: Normal Inspection, Full Range of Motion Extremities: Normal Inspection, Normal Range of Motion, Normal Capillary Refill Neurological: Alert, Oriented, CN II-XII Intact, Normal Cognition, Normal Gait, No Motor/Sensory Deficits Psychiatric: Normal Affect, Normal Mood Skin Exam: Warm, Dry, Intact, Normal Color, No Rash. No: Cyanosis, Jaundice, Mottled, Pallor #1 Interpretation EKG Date: 10/02/21 Time: 12:21 Rhythm: NSR Rate (Beats/Min): 82 [place]: Normal P-Wave: Present QRS: Normal ST-T: Normal QT: Normal TN/PQ Interval: 0.16 Comparison: NA - No Prior EKG EKG Interpretation Comments: NSR; No evidence of acute myocardial ischemia Course - Vital Signs Last Recorded V/S: Last Vital Signs Temp 98.5 F 10/02/21 11:33 Pulse 97 10/02/21 12:39 Resp 16 10/02/21 11:33 BP 134/79 10/02/21 11:33 Pulse Ox 98 10/02/21 11:33 - Orders/Labs/Meds Labs: Laboratory Tests 10/02/21 Range/Units 11:20 Urine HCG, Qual Negative Meds: Medications Discontinued Medications Generic Name Dose Route Start Last Admin Trade Name Freq PRN Reason Stop Dose Admin Albuterol 2.5 mg 10/02/21 12:11 10/02/21 12:38 Albuterol 0.083% 2.5 Mg/3 Ml Neb Soln NEB 10/02/21 12:12 2.5 mg ONETIME ONE Administration Albuterol Confirm 10/02/21 12:32 Albuterol 0.083% 2.5 Mg/3 Ml Neb Soln Administered 10/02/21 12:33 Dose 2.5 mg .ROUTE .STK-MED ONE - Radiology Interpretation Free Text/Narrative:: [facility] [place] [facility] Final Radiology Report Call: [phone] assistance Online chat: [email or web address] Name: MADINA MANCIA Age: 26Years F Date: 10/02/2021 SSN: -- : [id number] Study: CR CHEST 1V FRONTAL Requesting Physician: Anisa Stinson Images: 1 Addl Studies: Provided Clinical History: Bilateral upper lobe wheeze, rales to left lower Contrast: Contrast Medium: Contrast Amount: Contrast Method: CONFIDENTIALITY STATEMENT This report is intended only for use by the referring physician, and only in accordance with law. If you received this in error, call [phone]. Page 1 of 1 PROCEDURE INFORMATION: Exam: XR Chest Exam date and time: 10/02/2021 12:42 PM Age: 26 years old Clinical indication: Cough; Additional info: Bilateral upper lobe wheeze, rales to left lower TECHNIQUE: Imaging protocol: XR of the chest. Views: 1 view. COMPARISON: No relevant prior studies available. FINDINGS: Lungs: Unremarkable. No consolidation. Pleural spaces: Unremarkable. No pleural effusion. No pneumothorax. Heart/Mediastinum: Unremarkable. No cardiomegaly. Bones/joints: Unremarkable. IMPRESSION: No acute findings. Thank you for allowing us to participate in the care of your patient. Dictated and Authenticated by: Ortiz Talamantes MD 10/02/2021 1:04 PM Central Time ([place] & [place]) - Re-Assessments/Exams Free Text/Narrative Re-Assessment/Exam: 10/02/21 Albuterol Neb administered. EKG and CXR performed. Patient verbalized improvement in work of breathing following nebulizer. Findings of examination and imaging reviewed with patient. Will treat viral URI with albuterol inhaler and Tessalon Perles. Supportive cares discussed. Patient instructed to follow up with primary care provider regarding todays visit. Red flag signs and symptoms which would warrant immediate reevaluation reviewed. Patient verbalized understanding and agreement with the plan of care. Departure - Departure Time of Disposition: 13:06 Disposition: Home, Self-Care 01 Condition: Good Clinical Impression: Viral upper respiratory infection - Discharge Information *PRESCRIPTION DRUG MONITORING PROGRAM REVIEWED*: Not Applicable *COPY OF PRESCRIPTION DRUG MONITORING REPORT IN PATIENT RICHY: Not Applicable Instructions: Viral Respiratory Infection Forms: ED Department Discharge Additional Instructions: Rx: Tessalon Perles RX: albuterol MDI 1.) You may use a humidifier, or warm steam showers, to help with congestion and cough. 2.) You may take ibuprofen (Advil/Motrin) 400mg every six hours, as pain and swelling persist. You may also take acetaminophen (Tylenol) 650mg every six hours, as pain persists. You may stagger these medications so you are taking a dose of either every three hours. 3.) Follow up with your primary care provider in 10-14 days, sooner should symptoms worsen. Sepsis Event Note (ED) - Evaluation Sepsis Screening Result: No Definite Risk - Focused Exam Vital Signs: Vital Signs Temp Pulse Resp BP Pulse Ox 10/02/21 12:39 97 10/02/21 11:33 98.5 F 93 16 134/79 98
--- NOTE | 2021-10-02 13:05 | CR ---
PROCEDURE INFORMATION: Exam: XR Chest Exam date and time: 10/02/2021 12:42 PM Age: 26 years old Clinical indication: Cough; Additional info: Bilateral upper lobe wheeze, rales to left lower TECHNIQUE: Imaging protocol: XR of the chest. Views: 1 view. COMPARISON: No relevant prior studies available. FINDINGS: Lungs: Unremarkable. No consolidation. Pleural spaces: Unremarkable. No pleural effusion. No pneumothorax. Heart/Mediastinum: Unremarkable. No cardiomegaly. Bones/joints: Unremarkable. IMPRESSION: No acute findings.
== END 2021-10-02 13:18 | disposition home or self-care (01) ==
LOC: DL.ED 11:12
DX: J06.9 Acute upper respiratory infection, unspecified (principal); Z88.0 Allergy status to penicillin; Z88.8 Allergy status to other drugs, medicaments and biological substances; Z88.2 Allergy status to sulfonamides; Z72.0 Tobacco use
CPT/HCPCS: 71045; 81025; 99284-25; J7613-GY

== ENCOUNTER 2022-01-17 19:13 | Emergency (ER) | payer BC, OTHER ==
[2022-01-17] MEDS ORDERED: Sodium Chloride 0.9% 1,000 ML IV ONE (19:16)
[2022-01-17 19:24] LABS: AMPHETAMINES,URINE NEGATIVE (NEGATIVE); BARBITURATES,URINE NEGATIVE (NEGATIVE); BENZODIAZEPINE,URINE NEGATIVE (NEGATIVE); MDMA (ECSTASY), URINE NEGATIVE (NEGATIVE); METHADONE,URINE NEGATIVE (NEGATIVE); METHAMPHETAMINES,URINE NEGATIVE (NEGATIVE); OPIATES,URINE NEGATIVE (NEGATIVE); OXYCODONE,URINE NEGATIVE (NEGATIVE); PHENCYCLIDINE,URINE NEGATIVE (NEGATIVE); TCA,URINE NEGATIVE (NEGATIVE)
[2022-01-17 19:38] LABS: CHLORIDE,CL 103 mmol/L (98-107); SODIUM,NA 137 mmol/L (136-145)
[2022-01-17 19:50] LABS: ACETAMINOPHEN 0 ug/mL (10-30 (Therapeutic)); ANION GAP 12.1 mEq/L (7-13); ESTIMATED GFR > 60
[2022-01-17 19:59] VITALS: BP 166/64; PULSE 87
[2022-01-17 20:36] LABS: CORONAVIRUS COVID-19 NAA NEGATIVE (NEGATIVE)
== END 2022-01-17 20:58 | disposition home or self-care (01) ==
LOC: DL.ED 19:13
DX: T50.902A Poisoning by unspecified drugs, medicaments and biological substances, intentional self-harm, initial encounter (principal); Z88.0 Allergy status to penicillin; Z88.2 Allergy status to sulfonamides; Z88.8 Allergy status to other drugs, medicaments and biological substances; Z20.822 Contact with and (suspected) exposure to COVID-19
CPT/HCPCS: 0240U; 36415; 51702; 80053; 80143; 80179; 80305; 80307; 82150; 82947; 83690; 83735; 84703; 85025; 93005; 99285; J7030; 93010

== ENCOUNTER 2022-06-05 14:47 | Emergency (ER) | payer BC, OTHER ==
[2022-06-05] MEDS ORDERED: Albuterol/Ipratropium 3.0-0.5 MG/3 ML Neb Soln NEB ONE (15:31)
[2022-06-05] MEDS ORDERED: predniSONE 20 MG Tab PO ONE (17:32)
[2022-06-05] MEDS ORDERED: Albuterol 6.7 GM Inhaler INH ONE (17:33)
[2022-06-05] MEDS ORDERED: Azithromycin 250 MG Tab PO ONE (17:33)
[2022-06-05 18:54] VITALS: BP 130/80; PULSE 106
== END 2022-06-05 18:16 | disposition home or self-care (01) ==
LOC: DL.ED 14:47
DX: J45.41 Moderate persistent asthma with (acute) exacerbation (principal); Z88.0 Allergy status to penicillin; Z88.2 Allergy status to sulfonamides; Z88.8 Allergy status to other drugs, medicaments and biological substances; Z20.822 Contact with and (suspected) exposure to COVID-19
CPT/HCPCS: 36415; 71045; 81025; 85025; 85379; 87081; 87430; 87635; 94640; 99285; A9270; J7512; 99284; J7620-GY; U0002